=== PATIENT | female | born 1995 | race African-American/Black ===

== ENCOUNTER 2017-08-21 18:03 | Emergency (ER) | payer SELFPAY ==
[~2017-08-21] VITALS: Ht 162.6 cm; Wt 54.2 kg
[2017-08-21 18:28] LABS: HEMATOCRIT 40.1 % (36.0-46.0); MCH 31.7 PG (29.0-34.0); MCHC 34.9 G/DL (30.0-36.0); MCV 90.7 FL (83-99); PLATELET COUNT 241 K/uL (156-360); RBC DIS.WIDTH-CV 11.5 % (11.8-14.6); RBC DIS.WIDTH-SD 38.4 % (39-53); RED BLOOD COUNT 4.42 M/uL (3.80-5.20); WHITE BLOOD COUNT 5.7 K/uL (4.1-10.2)
[2017-08-21 18:37] LABS: ALBUMIN 4.3 g/dL (3.2-4.8); CHLORIDE 107 mEq/L (99-109); POTASSIUM 3.9 mEq/L (3.7-5.4); SODIUM 139 mEq/L (136-147)
[2017-08-21 18:39] LABS: GLUCOSE 88 mg/dL (70-99)
[2017-08-21 18:40] LABS: TOTAL PROTEIN 7.6 g/dL (6.4-8.3)
[2017-08-21 18:41] LABS: TOTAL BILIRUBIN 1.6 mg/dL (0.0-1.0)
[2017-08-21 18:43] LABS: ALKALINE PHOSPHATASE 79 IU/L (3-129); CREATININE 0.9 mg/dL (0.6-1.3); GFR ESTIMATE (CALCULATED) > 59 mL/min/
[2017-08-21 18:44] LABS: UREA NITROGEN (BUN) 8 mg/dL (9-23)
[2017-08-21 18:45] LABS: AST (GOT) 20 IU/L (2-34)
[2017-08-21 18:46] LABS: ALT (GPT) 17 IU/L (3-49)
[2017-08-21 18:53] LABS: QUANTITATIVE HCG < 4.0 MIU/ML
[2017-08-21 20:04] LABS: APPEARANCE CLEAR ((CLEAR)); BILIRUBIN NEGATIVE; BLOOD MODERATE; COLOR YELLOW ((YELLOW)); GLUCOSE (STRIP) NEGATIVE; KETONES NEGATIVE; LEUKOCYTES NEGATIVE; NITRITE NEGATIVE; PROTEIN (STRIP) NEGATIVE; SPECIFIC GRAVITY 1.016 (1.000-1.030); UROBILINOGEN 0.2 MG/DL (0.2-1.0)
[2017-08-21 20:17] LABS: BACTERIA NONE SEEN /HPF; EPITHELIAL CELLS RARE /HPF; MUCUS TRACE /LPF; RED BLOOD CELLS TNTC /HPF (0-5); UCUL ADDED? YES; WHITE BLOOD CELLS 0-5 /HPF (0-5)
[2017-08-21 21:44] VITALS: BP 128/68
== END 2017-08-21 21:45 | disposition home or self-care (01) ==
LOC: EME 18:03
DX: N92.1 Excessive and frequent menstruation with irregular cycle (principal)
CPT/HCPCS: 76856; 80053; 81003; 84702; 85027; 87086; 99281; 99284